=== PATIENT | female | born 1990 | race Caucasian/White ===

== ENCOUNTER 2017-06-14 08:00 | Inpatient (IN) | payer OTHER ==
[2017-06-14] MEDS: Lactated Ringer's 1,000 ML IV SCH ×2 (08:15→09:15)
[2017-06-14 08:16] VITALS: BMI 27.8
[2017-06-14] MEDS ORDERED: ceFAZolin 2 GM in Sodium Chloride 0.9% 100 ML IVPB ONE (08:21)
[2017-06-14] MEDS ORDERED: Oxytocin 30 units/LR 500ML 30 U/500 ML BAG IV ONE (08:48)
[2017-06-14 08:56] LABS: BASO % 0.4 % (0.0-2.0); EOS # 0.1 K/uL (0.0-0.7); EOS % 1.5 % (0.0-4.0); HEMOGLOBIN 10.6 g/dL (12.0-16.0); LYMPH # 1.9 K/uL (1.0-4.3); LYMPH % 23.4 % (20.0-40.0); MEAN CELL VOLUME 88.4 fl (81.0-99.0); MEAN CORPUSCULAR HEMOGLOBIN 29.6 pg (27.0-31.0); MEAN CORPUSCULAR HGB CONC 33.5 g/dL (33.0-37.0); MEAN PLATELET VOLUME 8.2 fl (7.2-11.7); MONO # 0.8 K/uL (0.0-0.8); MONO % 9.7 % (0.0-10.0); NEUT # 5.3 K/uL (1.8-7.0); RBC 3.58 Mil/uL (3.80-5.20); RED CELL DISTRIBUTION WIDTH 15.6 % (11.5-14.5); WHITE BLOOD COUNT 8.2 K/uL (4.8-10.8)
[2017-06-14] MEDS ORDERED: Morphine 1 mg/ml preservative-free Inj(Duramorph) ONE (08:58)
[2017-06-14] MEDS ORDERED: Dexamethasone 4 mg/1 ml ONE (09:04)
[2017-06-14] MEDS ORDERED: Phenylephrine 10 mg/ml Inj ONE (09:05)
[2017-06-14] MEDS ORDERED: ePHEDrine 50 mg/ml Inj ONE (09:08)
[2017-06-14] MEDS ORDERED: Morphine 1 mg/ml preservative-free Inj(Duramorph) IT ONE (09:40)
[2017-06-14] MEDS ORDERED: Oxytocin 30 units/LR 500ML 30 U/500 ML BAG IV SCH (10:02)
[2017-06-14] MEDS ORDERED: DiphenhydrAMINE 50 mg/ml Inj IVP PRN (11:07)
[2017-06-14] MEDS: Oxycodone/Acetaminophen 5/325 mg Tab PO PRN ×2 (19:00→23:05)
[2017-06-15] MEDS: Oxycodone/Acetaminophen 5/325 mg Tab PO PRN ×5 (03:26→21:25)
[2017-06-15 07:59] LABS: HEMOGLOBIN 9.9 g/dL (12.0-16.0); MEAN CELL VOLUME 89.1 fl (81.0-99.0); MEAN CORPUSCULAR HEMOGLOBIN 29.2 pg (27.0-31.0); MEAN CORPUSCULAR HGB CONC 32.8 g/dL (33.0-37.0); RBC 3.4 Mil/uL (3.80-5.20); RED CELL DISTRIBUTION WIDTH 15.6 % (11.5-14.5); WHITE BLOOD COUNT 10.1 K/uL (4.8-10.8)
[2017-06-15] MEDS ORDERED: Oxycodone/Acetaminophen 5/325 mg Tab PO PRN (08:00)
[2017-06-15] MEDS: Multivitamin With Minerals Tab PO SCH (08:19)
--- NOTE | 2017-06-15 11:50 | OBPPN ---
Datetime: 06/15/2017 07:24 PP Pain Prov: Within normal limits PP Flatus Prov: No PP BM Prov: No PP Abdomen/Uterus Prov: Normal PP Lochia Prov: Normal PP Extremities Prov: Normal PP C/S Incision Prov: Normal PP Progress Prov: Normal PP Comments Phys Exam Prov: Incision: Bandage in place PP Impression Prov: Normal progression PP Plan Prov: Continue present management PP Progress Note Prov: POD 1 s/p Repeat c/s, doing well, breast and bottle feeding Advance diet to regular Encourage OOB Vital Signs Provider PP: Reviewed; Within Normal Limits
[2017-06-15] MEDS ORDERED: Bisacodyl 5mg EC Tab PO PRN (12:21)
[2017-06-15] MEDS ORDERED: Lansinoh for Breast Feeding Mothers TP ONE (22:52)
[2017-06-16] MEDS: Oxycodone/Acetaminophen 5/325 mg Tab PO PRN ×3 (02:17→18:00)
--- NOTE | 2017-06-16 07:47 | OBPPN ---
Datetime: 06/16/2017 07:11 PP Pain Prov: Within normal limits PP Nausea Prov: Denies PP Flatus Prov: No PP BM Prov: No PP Abdomen/Uterus Prov: Normal PP Lochia Prov: Normal PP Extremities Prov: Normal PP C/S Incision Prov: Normal PP Progress Prov: Normal PP Comments Phys Exam Prov: Incision: intact w/ steri strips PP Impression Prov: Normal progression PP Plan Prov: Continue present management PP Progress Note Prov: POD 2 s/p Repeat c/s, doing well, breast and bottle feeding Continue current care Vital Signs Provider PP: Reviewed; Within Normal Limits
[2017-06-16] MEDS: Multivitamin With Minerals Tab PO SCH (10:36)
[2017-06-17] MEDS: Oxycodone/Acetaminophen 5/325 mg Tab PO PRN ×2 (01:55→07:55)
[2017-06-17] MEDS: Multivitamin With Minerals Tab PO SCH (08:26)
--- NOTE | 2017-06-17 10:05 | OBPPN ---
Datetime: 06/17/2017 10:02 PP Pain Prov: Within normal limits PP Nausea Prov: Denies PP Flatus Prov: Yes PP BM Prov: No PP Breasts Prov: Normal PP Heart Prov: Normal PP Lungs Prov: Normal PP Abdomen/Uterus Prov: Normal PP Lochia Prov: Normal PP Vulva/Perineum Prov: Normal PP CVA Tenderness Prov: Normal PP Extremities Prov: Normal PP Comments Phys Exam Prov: Incision clean, dry, intact No erythema, swelling, induration Abdomen soft, nontender, nondistended, normal bowel sounds Extremities: No deep calf tenderness bilaterally. PP Impression Prov: Normal progression PP Plan Prov: Discharge PP Progress Note Prov: Postoperative day #3 status post repeat , recovering well Discharge home with postoperative instructions Follow-up in one week for wound check IP PP Procedures: None Vital Signs Provider PP: Reviewed; Within Normal Limits
--- NOTE | 2017-06-17 10:07 | OBDCSUM ---
Datetime: 06/17/2017 10:04 Discharged to, Provider: Home Follow up at, Provider: Michael Disch Instr Activity: Normal activity Disch Instr Diet: Regular Discharge Instructions, Provider: Routine instructions given Discharge Diagnosis, Provider: Term Delivered Discharge Time: 06/17/2017 10:04 Follow up in weeks, Provider: 1 week Disch Referrals: None Contraception discussed, Prov: Yes
--- NOTE | 2017-06-17 11:18 | OBDS ---
DELIVERY PERSONNEL Delivery Doctor: Kiki Rodriguez MD Scrub Nurse: Mackenzie Ding Gas Leak Inspector Helper: Nicky Vela RN Anesthesiologist: Carine Zhang MD MATERNAL INFORMATION Delivery Anesthesia: Spinal Medications in Delivery: Pitocin 30 units, surgicel Estimated Blood Loss (ml): 800 Placenta Cultured: No Maternal Complications: None Provider Comments: Repeat low flap transverse section via Pfannenstiel incision. Patient delivered viable infant female with Apgars of 9 and 9 at one and 5 minutes respectively. P lacenta delivered manually. Estimated blood loss 800 mL fluids 1200 mL lactated Ringer's 300 mL of clear urine at the end of procedure No complications. LABOR SUMMARY EDC: 06/13/2017 00:00 No. Babies in Womb: 1 Attempted: No Labor Anesthesia: Spinal LABOR INFORMATION Reason for Induction: Not Applicable Oxytocin: N/A Group B Beta Strep: Done, Result Unknown Steroids Given: None Reason Steroids Not Administered: Not Applicable MEMBRANES Membranes Rupture Method: Artificial Rupture of Membranes: 06/14/2017 10:00 Length of Rupture (hrs): 0.02 Amniotic Fluid Color: Clear Amniotic Fluid Amount: Small Amniotic Fluid Odor: Normal STAGES OF LABOR Stage 3 hrs: 0 Stage 3 min: 1 CSECTION DELIVERY Primary Indication: Repeat Elective Secondary Indication: Repeat Elective CSection Urgency: Elective CSection Incidence: Repeat Labor: No Labor Elective: Elective CSection Incision: Lower Uterine Transverse BABY A INFORMATION Delivery Date/Time: 06/14/2017 10:01 Method of Delivery: Born in Route : No : N/A Forceps: N/A Vacuum Extraction: N/A Shoulder Dystocia : No SHOULDER DYSTOCIA BABY A Delivery Date/Time: 06/14/2017 10:01 PRESENTATION/POSITION BABY A Presentation: Cephalic Cephalic Presentation: Vertex Breech Presentation: N/A PLACENTA INFORMATION BABY A Placenta Delivery Time : 06/14/2017 10:02 Placenta Method of Delivery: Spontaneous Placenta Status: Delivered SCORES BABY A Heart Rate 1 min: >100 bpm Resp Effort 1 min: Good Cry Reflex Irritability 1 min: Cough or Sneeze or Pulls Away Muscle Tone 1 min: Active Motion Color 1 min: Body [place], Extremities Blue Resuscitation Effort 1 min: Tactile Stimulation SCORE 1 MIN: 9 Heart Rate 5 min: >100 bpm Resp Effort 5 min: Good Cry Reflex Irritability 5 min: Cough or Sneeze or Pulls Away Muscle Tone 5 min: Active Motion Color 5 min: Body [place], Extremities Blue Resuscitation Effort 5 min: Tactile Stimulation SCORE 5 MIN: 9 INFORMATION BABY A Gestational Age at Delivery: 40.0 Gestational Status: Term Infant Outcome : Liveborn Condition : Stable Infant Sex: Female IDENTIFICATION/MEDS BABY A ID Band Number: [id number] ID Band Location: Left Leg; Left Arm WEIGHT/LENGTH BABY A Infant Birthweight (gms): 40 Weight (lb): 0 Infant Weight (oz): 1 CORD INFORMATION BABY A No. Cord Vessels: 3 Nuchal Cord : N/A Cord Blood Taken: No Infant Suction: Mouth ASSESSMENT BABY A Complications: None Physical Findings at Delivery: Within Normal Limits Respirations: Appears Normal Pulley Man/ALS Called : No Infant Care By: Karla Worthington Transferred To: Remains with Mother
[2017-06-17 18:30] VITALS: BP 127/83; PULSE 86; RESP 20; TEMP 98.4
--- NOTE | 2017-06-17 23:56 | OP ---
PROCEDURE DATE: 06/14/2017 PREOPERATIVE DIAGNOSIS: Elective repeat section at 39 weeks gestational age. POSTOPERATIVE DIAGNOSIS: Elective repeat section at 39 weeks gestational age. OPERATION PERFORMED: Repeat low flap transverse section via Pfannenstiel incision. OPERATIVE FINDINGS: Viable female with Apgars of 9 and 9 at 1 and 5 minutes respectively, normal uterus, normal tubes and ovaries bilaterally, moderate amount of intraabdominal and pelvic adhesions. SURGEON: Jerardo Rodriguez MD SERVICENOW ADMINISTRATOR: Dr. Love Sebastian. Dr. Kolb was present from the beginning of the procedure to the end of the procedure. Dr. Sebastian was integral in controlling intraoperative bleeding, exposing the surgical field, removal of intraabdominal adhesions, and manual delivery of the . ANESTHESIOLOGIST: Dr. Guzman. TYPE OF ANESTHESIA: Spinal COMPLICATIONS: None. DESCRIPTION OF PROCEDURE: The patient was taken to the operating room where spinal anesthesia was found to be adequate. The patient was prepped and draped in the normal sterile fashion in the dorsal supine position with leftward tilt. A Pfannenstiel skin incision was made with scalpel. This was carried down through to the underlying layer of fascia with scalpel. Midline dissection was made in fascial layer with a scalpel. The fascial incision was then extended bilaterally sharply with curved Phipps scissors. The fascial layer was from the underlying rectus muscles both bluntly and sharply with curved Phipps scissors. The peritoneum was then identified, tented up with Madhuri clamps x2, entered sharply with Metzenbaum scissors. This peritoneal incision was then extended superiorly and inferiorly with good visualization of the urinary bladder. Bladder blade was inserted into the abdomen. The vesicouterine peritoneum was then identified, tented up with Madhuri clamps x2, then entered sharply with Metzenbaum scissors. This peritoneal incision was then extended bilaterally with Metzenbaum scissors. The bladder flap was created digitally. The Mary retractors were placed over the urinary bladder. The uterus was incised with a scalpel. The uterine incision was extended bilaterally bluntly. The 's head was delivered atraumatically. Nose and mouth were suctioned with bulb suction. The remainder of the infant was delivered without complication. The cord was clamped and cut. The infant was handed off to awaiting pediatricians. Cord blood was collected. The placenta was removed manually. The uterus was cleared of all clots and debris. The uterine incision was repaired with 0 Vicryl in a running, locked fashion. Reinspection of the uterine incision revealed excellent hemostasis. The abdomen and pelvis were irrigated with copious amounts of warm normal saline. Reinspection of the uterine incision proved excellent hemostasis. All instruments were withdrawn from the patient. The peritoneal layer was closed with interrupted stitch of 2-0 chromic. The rectus muscle was reapproximated in the midline with a running stitch of 2-0 chromic. The facial layer was closed with a running stitch of 0 Vicryl. Subcutaneous tissue was re-approximated with a running stitch of 3-0 plain. The skin was closed with a subcutaneous tissue of 3-0 Vicryl. The patient tolerated the procedure well. All sponge count, lap count, and needle counts were correct x2. The patient was given 2 g of Ancef just prior to beginning of the procedure. There were no complications. The patient was taken to the recovery room in awake and stable condition. Jerardo Rodriguez MD
== END 2017-06-17 14:17 | disposition home or self-care (01) | DRG 371 ==
LOC: H.EROB2 08:00 → H.L&D 08:03 → H.EROB2 08:16 → H.L&D 08:17 → H.OB/GYN 13:00
PROVIDERS: ADMIT Obstetrics & Gynecology; ATTEND Obstetrics & Gynecology
PROC: 10D00Z1 Extraction of Products of Conception, Low, Open Approach (ICD-10-PCS; principal; 2017-06-14)
PROC: 4A1HXCZ Monitoring of Products of Conception, Cardiac Rate, External Approach (ICD-10-PCS; 2017-06-14)
DX: O34.211 Maternal care for low transverse scar from previous cesarean delivery (principal); N73.6 Female pelvic peritoneal adhesions (postinfective); Z37.0 Single live birth; O99.89 Other specified diseases and conditions complicating pregnancy, childbirth and the puerperium; N85.8 Other specified noninflammatory disorders of uterus; Z3A.39 39 weeks gestation of pregnancy

== ENCOUNTER 2017-06-20 09:51 | Emergency (ER) | payer OTHER ==
[2017-06-20 10:09] VITALS: BMI 26.9
[2017-06-20] MEDS ORDERED: Iohexol 240 (50 ml) PO STA (12:53)
--- NOTE | 2017-06-20 13:10 | RAD ---
HISTORY: abdominal pain, constipation x 1 week, since C-sec COMPARISON: No prior. FINDINGS: BOWEL: Scattered distended loops of bowel in the left lower quadrant. Cannot rule out early/partial SBO. BONES: Normal. OTHER FINDINGS: None. IMPRESSION: Scattered distended loops of bowel in the left lower quadrant. Cannot rule out early/partial SBO.
[2017-06-20] MEDS ORDERED: Iohexol 240 (50 ml) ONE (13:22)
[2017-06-20 13:49] LABS: BASO # 0.1 K/uL (0.0-0.2); BASO % 1.1 % (0.0-2.0); EOS # 0.4 K/uL (0.0-0.7); EOS % 5.1 % (0.0-4.0); HEMOGLOBIN 10.1 g/dL (12.0-16.0); LYMPH % 28.4 % (20.0-40.0); MEAN CELL VOLUME 88.7 fl (81.0-99.0); MEAN CORPUSCULAR HEMOGLOBIN 29.4 pg (27.0-31.0); MEAN CORPUSCULAR HGB CONC 33.2 g/dL (33.0-37.0); MEAN PLATELET VOLUME 7.5 fl (7.2-11.7); MONO # 0.5 K/uL (0.0-0.8); NEUT # 4.1 K/uL (1.8-7.0); NEUT % 58.4 % (50.0-75.0); NRBC % 0.1 % (0.0-0.0); RBC 3.42 Mil/uL (3.80-5.20); RED CELL DISTRIBUTION WIDTH 15.3 % (11.5-14.5)
[2017-06-20 14:06] LABS: ALB/GLOB RATIO 0.9 (1.0-2.1); ALBUMIN 3.2 g/dL (3.5-5.0); ALT/SGPT 29 U/L (9-52); AST/SGOT 21 U/L (14-36); BLOOD UREA NITROGEN 11 mg/dl (7-17); CALCIUM 9.2 mg/dL (8.4-10.2); GFR AFRICAN-AMERICAN > 60; GFR NON-AFRICAN AMERICAN > 60
[2017-06-20] MEDS ORDERED: Morphine 4 MG/ML VIAL IV STA (14:52)
[2017-06-20] MEDS ORDERED: Morphine 4 MG/ML VIAL ONE (14:54)
[2017-06-20] MEDS ORDERED: Iohexol 300 100 ML IJ ONE (15:33)
[2017-06-20] MEDS ORDERED: Sodium Chloride 0.9% 100 ML ONE (15:34)
--- NOTE | 2017-06-20 16:24 | CT ---
PROCEDURE: CT Abdomen and Pelvis with contrast HISTORY: abdominal pain, constipation COMPARISON: None. TECHNIQUE: Contrast dose: 100 cc of Omnipaque 300 Radiation dose: Total exam DLP = 685 mGy-cm. This CT exam was performed using one or more of the following dose reduction techniques: Automated exposure control, adjustment of the mA and/or kV according to patient size, and/or use of iterative reconstruction technique. FINDINGS: LOWER THORAX: Unremarkable. LIVER: Unremarkable. No gross lesion or ductal dilatation. GALLBLADDER AND BILE DUCTS: Unremarkable. PANCREAS: Unremarkable. No gross lesion or ductal dilatation. SPLEEN: Unremarkable. ADRENALS: Unremarkable. No mass. KIDNEYS AND URETERS: Unremarkable. No hydronephrosis. No solid mass. VASCULATURE: Unremarkable. No aortic aneurysm. BOWEL: Abundant stool throughout the colon. No obstruction. No gross mural thickening. APPENDIX: Normal appendix. PERITONEUM: Unremarkable. No free fluid. No free air. LYMPH NODES: Unremarkable. No enlarged lymph nodes. BLADDER: Unremarkable. REPRODUCTIVE: Markedly enlarged leiomyomatous uterus extending into the abdomen with surrounding mass effect on adjacent structures.. BONES: No acute fracture. OTHER FINDINGS: None. IMPRESSION: Markedly enlarged leiomyomatous uterus extending into the abdomen with surrounding mass effect on adjacent structures..Abundant stool throughout the colon. No obstruction.
--- NOTE | 2017-06-20 16:50 | ED PDOC ---
HPI: Abdomen Time Seen by Provider: 06/20/17 10:38 Chief Complaint (Nursing): Abdominal Pain Chief Complaint (Provider): Diffuse abdominal pain History Per: Patient History/Exam Limitations: no limitations Onset/Duration Of Symptoms: Days Outside of [place] travel?: No Current Symptoms Are (Timing): Still Present Severity: Moderate Pain Scale Rating Of: 6 Location Of Pain/Discomfort: Diffuse Quality Of Discomfort: Sharp (Intermittent ) Associated Symptoms: Constipation. denies: Fever, Chills, Nausea, Vomiting, Diarrhea, Loss Of Appetite, Urinary Symptoms Exacerbating Factors: None Alleviating Factors: None Additional Complaint(s): Pt 1 week s/p Past Medical History Reviewed: Historical Data, Nursing Documentation, Vital Signs Vital Signs: Last Vital Signs Temp 98 F 06/20/17 10:08 Pulse 62 06/20/17 10:08 Resp BP 132/87 06/20/17 10:08 Pulse Ox 99 06/20/17 10:08 - Medical History PMH: No Chronic Diseases Denies: Depression, Diabetes, HTN - Surgical History Surgical History: No Surg Hx - Family History Family History: States: No Known Family Hx - Living Arrangements Living Arrangements: With Family - Social History Current smoker - smoking cessation education provided: No Alcohol: None Drugs: Denies - Home Medications Home Medications: Ambulatory Orders Medication Instructions Recorded Vit No.126/Iron/Folic 1 tab PO DAILY MDD 1 tab 06/14/17 [Prenavite] Docusate [Colace] 100 mg PO BID #60 cap 06/17/17 oxyCODONE/Acetaminophen [Percocet 1 tab PO Q4 PRN #30 tab 06/17/17 5/325 mg Tab] - Allergies Allergies/Adverse Reactions: Allergies Allergy/AdvReac Type Severity Reaction Status Date / Time No Known Allergies Allergy Verified 06/14/17 08:16 Physical Exam - Reviewed Nursing Documentation Reviewed: Yes Vital Signs Reviewed: Yes - Physical Exam Appears: Positive for: Well, Non-toxic, No Acute Distress Head Exam: Positive for: ATRAUMATIC, NORMAL INSPECTION, NORMOCEPHALIC Skin: Positive for: Normal Color, Warm, DRY Eye Exam: Positive for: Normal appearance ENT: Positive for: Normal ENT Inspection Neck: Positive for: Normal, Painless ROM Cardiovascular/Chest: Positive for: Regular Rate, Rhythm Respiratory: Positive for: CNT, Normal Breath Sounds Gastrointestinal/Abdominal: Positive for: Normal Exam, Bowel Sounds, Soft, Tenderness (Diffuse ). Negative for: Guarding, Rebound Pelvic Exam: Positive for: Other (Uterus slightly under the umbilicus) Back: Positive for: Normal Inspection Extremity: Positive for: Normal ROM. Negative for: Tenderness Neurologic/Psych: Positive for: Alert, Oriented - Laboratory Results Result Diagrams: 06/20/17 13:30 06/20/17 13:30 - ECG O2 Sat by Pulse Oximetry: 99 Medical Decision Making Medical Decision Making: Discussed CT reports with Dr. Rodriguez. Pt tolerated food in ER. Disposition - Clinical Impression Clinical Impression: Constipation - Patient ED Disposition Is Patient to be Admitted: No Counseled Patient/Family Regarding: Diagnosis, Need For Followup, Rx Given - Disposition Disposition: Routine/Home Disposition Time: 16:49 Condition: GOOD Additional Instructions: Continue stool softeners. Lots of water and fiber. Dulcolax may be taken. Instructions: Constipation (ED)
[2017-06-20 17:09] VITALS: BP 126/78; PULSE 78; RESP 18; TEMP 97.5; O2SAT 98
== END 2017-06-20 17:09 | disposition home or self-care (01) ==
LOC: H.ER 09:51
DX: K59.00 Constipation, unspecified (principal); D25.9 Leiomyoma of uterus, unspecified